=== PATIENT | female | born 1960 | race Hispanic/Latino ===

== ENCOUNTER 2020-12-09 18:31 | Inpatient (IN) | payer SELFPAY ==
[~2020-12-09] VITALS: Ht 142.2 cm; Wt 85.1 kg
[2020-12-09] MEDS ORDERED: 0.9%NACL 1000ML 1,000 ML IV ONE (20:30)
[2020-12-09] MEDS ORDERED: ONDANSETRON 4MG INJ IVP ONE (20:30)
[2020-12-09 21:17] LABS: CREATININE 0.8 mg/dL (0.5-1.5); POTASSIUM 3.6 mmol/L (3.5-5.1)
[2020-12-09 21:19] LABS: INR 0.98 (0.85-1.15); PROTHROMBIN TIME 10.7 SEC (9.6-11.6)
[2020-12-09 21:22] LABS: ALBUMIN 2.9 g/dL (3.5-5.0); BILIRUBIN,TOTAL 0.4 mg/dL (0.2-1.0); TOTAL PROTEIN, SERUM 7.1 g/dL (6.0-8.3)
[2020-12-10] MEDS ORDERED: MORPHINE 4 MG SYG IV PRN
[2020-12-10] MEDS ORDERED: ONDANSETRON 4MG INJ IV PRN
[2020-12-10] MEDS ORDERED: LEVOFLOXACIN 500 MG/D5W 100 ML 100 ML IV SCH
[2020-12-10] MEDS: METRONIDAZOLE 500MG/100ML BAG 100 ML IV SCH ×3 (00:40→17:26)
[2020-12-10] MEDS: LACTATED RINGERS 1000ML 1,000 ML IV SCH ×3 (00:45→20:00)
[2020-12-10] MEDS: LEVOFLOXACIN 500 MG/D5W 100 ML 100 ML IV SCH (02:07)
[2020-12-10] MEDS ORDERED: METRONIDAZOLE 500MG/100ML BAG 100 ML IVPB SCH (06:00)
[2020-12-10 07:05] LABS: BASOPHILS % (AUTO) 0.4 % (0.0-5.0); EOSINOPHILS % (AUTO) 2.3 % (0.0-8.0); HEMATOCRIT 35.2 % (36-48); LYMPHOCYTES % (AUTO) 23.4 % (21.0-51.0); MEAN CORPUSCULAR HEMOGLOBIN 30.6 pg (27.0-33.0); MEAN CORPUSCULAR HGB CONC 34.1 g/dL (32.0-36.0); MEAN CORPUSCULAR VOLUME 89.8 fL (79-99); MONOCYTES % (AUTO) 6.7 % (3.0-13.0); NEUTROPHILS % (AUTO) 66.8 % (40.0-77.0); PLATELET COUNT (AUTO) 206 K/uL (130-400); RED BLOOD CELL COUNT(AUTO) 3.92 MIL/uL (4.00-5.50); RED CELL DISTRIBUTION WIDTH 12.3 % (11.0-15.5); WHITE BLOOD COUNT (AUTO) 7.3 K/uL (4.8-10.8)
[2020-12-10 07:14] LABS: HEMOGLOBIN A1C 8.3 % (4.0-6.0)
[2020-12-10 07:27] LABS: CREATININE 0.7 mg/dL (0.5-1.5); PHOSPHORUS 2.8 mg/dL (2.5-4.9); THYROID STIMULATING HORMONE 2.37 uIU/mL (0.36-3.74)
[2020-12-10] MEDS: LACTULOSE 20 GM/30 ML UDCUP PO SCH ×2 (09:18→20:28)
[2020-12-10] MEDS: FAMOTIDINE 20MG VIAL IV SCH ×2 (09:18→20:28)
[2020-12-10] MEDS ORDERED: METF-446 PO (09:45)
[2020-12-10] MEDS ORDERED: BENZAPRIL PO (09:48)
[2020-12-10] MEDS ORDERED: GLIM4TAB36 PO (09:49)
[2020-12-10] MEDS ORDERED: HYDR12.54 PO (09:50)
[2020-12-10] MEDS ORDERED: SIMV10TA97 PO (09:51)
[2020-12-10] MEDS ORDERED: PEG 3350/NA SULF,BICARB,CL/KCL 4000 ML SOLN PO SCH (13:00)
[2020-12-10 16:07] LABS: APPEARANCE,URINE Clear (CLEAR); BILIRUBIN,URINE Negative (NEGATIVE); COLOR,URINE Yellow (YELLOW); GLUCOSE, URINE (UA) TRACE mg/dL (NEGATIVE); KETONES,URINE Trace mg/dL (NEGATIVE); LEUKOCYTE ESTERASE ,URINE Small (NEGATIVE); NITRATE,URINE Negative (NEGATIVE); OCCULT BLOOD,URINE Negative (NEGATIVE); PH,URINE 6.5 (5.0-8.0); PROTEIN,URINE Negative (NEGATIVE)
[2020-12-10 16:24] LABS: BACTERIA,URINE Few /HPF (None Seen); MUCUS,URINE Moderate LPF (None Seen); RBC,URINE 0-1 /HPF (0-1); SQUAMOUS EPITHELIAL CELL,UR Few /HPF (0-2)
[2020-12-10] MEDS: INSULIN HUMULIN R 100 UNIT/ML 3ML SQ SCH ×2 (16:30→20:28)
[2020-12-10] MEDS: SIMVASTATIN 10 MG TABLET PO SCH (20:39)
[2020-12-10 22:50] VITALS: BP 156/58
[2020-12-11] VITALS (21 sets, daily range): BP systolic 111–183; BP diastolic 51–85
[2020-12-11] MEDS: METRONIDAZOLE 500MG/100ML BAG 100 ML IV SCH ×4 (00:05→23:04)
[2020-12-11] MEDS: LEVOFLOXACIN 500 MG/D5W 100 ML 100 ML IV SCH ×2 (00:05→23:04)
[2020-12-11] MEDS: LACTATED RINGERS 1000ML 1,000 ML IV SCH ×2 (05:05→16:00)
[2020-12-11] MEDS: INSULIN HUMULIN R 100 UNIT/ML 3ML SQ SCH ×4 (05:34→20:10)
[2020-12-11 06:19] LABS: BASOPHILS % (AUTO) 0.4 % (0.0-5.0); EOSINOPHILS % (AUTO) 2.2 % (0.0-8.0); HEMATOCRIT 39.4 % (36-48); LYMPHOCYTES % (AUTO) 35.2 % (21.0-51.0); MEAN CORPUSCULAR HEMOGLOBIN 30.9 pg (27.0-33.0); MEAN CORPUSCULAR VOLUME 93.6 fL (79-99); MONOCYTES % (AUTO) 6.4 % (3.0-13.0); NEUTROPHILS % (AUTO) 55.5 % (40.0-77.0); PLATELET COUNT (AUTO) 238 K/uL (130-400); RED BLOOD CELL COUNT(AUTO) 4.21 MIL/uL (4.00-5.50); RED CELL DISTRIBUTION WIDTH 12.4 % (11.0-15.5); WHITE BLOOD COUNT (AUTO) 7.1 K/uL (4.8-10.8)
[2020-12-11 06:39] LABS: CREATININE 0.7 mg/dL (0.5-1.5); MAGNESIUM 1.9 mg/dL (1.80-2.40); POTASSIUM 3.6 mmol/L (3.5-5.1)
[2020-12-11] MEDS: LACTULOSE 20 GM/30 ML UDCUP PO SCH ×2 (09:00→19:29)
[2020-12-11] MEDS: BENAZEPRIL HCL 10 MG TABLET PO SCH (09:23)
[2020-12-11] MEDS: FAMOTIDINE 20MG VIAL IV SCH ×2 (09:23→19:30)
[2020-12-11] MEDS ORDERED: PROPOFOL 10 MG/ML 20ML VIAL IV ONE (13:24)
[2020-12-11] MEDS: SIMVASTATIN 10 MG TABLET PO SCH (19:27)
[2020-12-12] VITALS: BP 150/70
[2020-12-12] MEDS: LACTATED RINGERS 1000ML 1,000 ML IV SCH (01:30)
[2020-12-12 04:00] VITALS: BP 140/67
[2020-12-12 05:06] LABS: MEAN CORPUSCULAR HEMOGLOBIN 30.5 pg (27.0-33.0); MEAN CORPUSCULAR HGB CONC 33.3 g/dL (32.0-36.0); MEAN CORPUSCULAR VOLUME 91.4 fL (79-99); RED BLOOD CELL COUNT(AUTO) 3.94 MIL/uL (4.00-5.50); RED CELL DISTRIBUTION WIDTH 12.1 % (11.0-15.5); WHITE BLOOD COUNT (AUTO) 5.8 K/uL (4.8-10.8)
[2020-12-12 05:20] LABS: CREATININE 0.6 mg/dL (0.5-1.5); POTASSIUM 3.7 mmol/L (3.5-5.1)
[2020-12-12] MEDS: INSULIN HUMULIN R 100 UNIT/ML 3ML SQ SCH (06:02)
[2020-12-12] MEDS: BENAZEPRIL HCL 10 MG TABLET PO SCH (08:25)
[2020-12-12] MEDS: METRONIDAZOLE 500MG/100ML BAG 100 ML IV SCH (08:25)
[2020-12-12] MEDS: LACTULOSE 20 GM/30 ML UDCUP PO SCH (08:25)
[2020-12-12] MEDS: FAMOTIDINE 20MG VIAL IV SCH (08:25)
[2020-12-12 08:45] VITALS: BP 162/67
== END 2020-12-12 11:30 | disposition home or self-care (01) | DRG 392 ==
LOC: EDH 18:31 → EDHIP 18:32 → 3CH 12-10 23:24
PROVIDERS: ADMIT Internal Medicine; ATTEND Internal Medicine
PROC: 0DJD8ZZ Inspection of Lower Intestinal Tract, Via Natural or Artificial Opening Endoscopic (ICD-10-PCS; principal; 2020-12-11)
DX: K57.30 Diverticulosis of large intestine without perforation or abscess without bleeding (principal); E11.9 Type 2 diabetes mellitus without complications; Z20.822 Contact with and (suspected) exposure to COVID-19; E78.00 Pure hypercholesterolemia, unspecified; I10 Essential (primary) hypertension; E78.5 Hyperlipidemia, unspecified; E03.9 Hypothyroidism, unspecified; K59.00 Constipation, unspecified; K63.89 Other specified diseases of intestine; R93.3 Abnormal findings on diagnostic imaging of other parts of digestive tract
CPT/HCPCS: 36415; 45378; 74176; 80048; 80053; 81001; 82948; 83036; 83735; 84100; 84145; 84443; 85025; 85027; 85610; 86850; 86900; 86901; 87040; 87635; 93005; A4606; G0378; J1815; J1956; J2405; J2704; J3490; J7030; J7120